=== PATIENT | male | born 1975 | race Hispanic/Latino ===

== ENCOUNTER 2020-07-08 13:06 | Emergency (ER) | payer BC ==
--- OUTSIDE RECORDS SUMMARY | 2020-07-08 13:09 | XMS REPORT | Continuity of Care Document ---
:1975 Author Organization [facility] t Address [address] [place] [address] Care Team Providers Name Role Phone Chauncey Palomares MD Attending Clinician Problems This patient has no known problems. Allergies, Adverse Reactions, Alerts This patient has no known allergies or adverse reactions. Medications This patient has no known medications. Procedures This patient has no known procedures. Encounters Start End Encounter Admission Attending Care Care Encounter Source Date/Time Date/Time Type Type Clinicians Facility Department ID 2019-01-23 2019-01-23 Emergency [facility] [id number] 03:41:44 05:34:00 Chauncey Rosario [id number] [place] [id number] [place] [id number] Results This patient has no known results.
--- NOTE | 2020-07-08 13:51 | ER ---
Nurse's Notes [facility] Name: Vinay Shabazz Jr Age: 45 yrs Sex: Male : 1975 Arrival Date: 07/08/2020 Time: 13:13 Bed 5 Private MD: Diagnosis: Paresthesia of skin Presentation: 07/08 13:16 Chief complaint: Patient states: R trunk pain for 5 days, spread to both sides of ll1 chest/trunk for 4 days. No cough or SOB. Some Nausea and fatigue. No known fever. Coronavirus screen: Client denies travel out of the [place] in the last 14 days. chills, congestion, fatigue, headache, nausea, shaking with chills, Client presents with at least one sign or symptom that may indicate coronavirus-19. Standard/surgical mask placed on the client. Ebola Screen: Patient denies travel to an Ebola-affected area in the 21 days before illness onset. Initial Sepsis Screen: Does the patient meet any 2 criteria? HR > 90 bpm. No. Patient's initial sepsis screen is negative. Does the patient have a suspected source of infection? No. Patient's initial sepsis screen is negative. Risk Assessment: Do you want to hurt yourself or someone else? Patient reports no desire to harm self or others. Onset of symptoms was July 03, 2020. 13:16 Method Of Arrival: Ambulatory [facility] 13:16 Acuity: TRI 3 ll1 Historical: - Allergies: 13:20 No Known Allergies; ll1 - PMHx: 13:20 Hypertension; Diabetes - IDDM; ll1 - PSHx: 13:20 endoscopy; ll1 - Immunization history:: Flu vaccine is not up to date. - Social history:: Smoking status: Patient denies any tobacco usage or history of. Screenin:57 Abuse screen: Denies threats or abuse. Nutritional screening: No deficits noted. jd3 Tuberculosis screening: No symptoms or risk factors identified. Fall Risk Ambulatory Aid- None/Bed Rest/Nurse Assist (0 pts). Gait- Normal/Bed Rest/Wheelchair (0 pts) Mental Status- Oriented to own ability (0 pts). Total Chen Fall Scale indicates No Risk (0-24 pts). Assessment: 13:55 General: Appears in no apparent distress. comfortable, Behavior is calm, cooperative, jd3 appropriate for age. Pain: Denies pain. Neuro: Level of Consciousness is awake, alert, obeys commands, Oriented to person, place, time, situation. Cardiovascular: Capillary refill < 3 seconds Patient's skin is warm and dry. Respiratory: Airway is patent Respiratory effort is even, unlabored, Respiratory pattern is regular, symmetrical. GI: No signs and/or symptoms were reported involving the gastrointestinal system. : No signs and/or symptoms were reported regarding the genitourinary system. EENT: No signs and/or symptoms were reported regarding the EENT system. Derm: Skin is intact, Skin is dry, Skin is normal, Skin temperature is warm Reports rash to legs and abdomen. Musculoskeletal: Circulation, motion, and sensation intact. Range of motion: intact in all extremities. Vital Signs: 13:16 BP 138 / 93; Pulse 100; Resp 17; Temp 98.2; Pulse Ox 97% ; Weight 86.18 kg; Height 5 ll1 ft. 9 in. (175.26 cm); Pain 2/10; 13:16 Body Mass Index 28.06 (86.18 kg, 175.26 cm) ll1 ED Course: 13:13 Patient arrived in ED. mr 13:19 Triage completed. ll1 13:20 Arm band placed on Patient placed in an exam room, on a stretcher. ll1 13:25 Mitchell Reza RN is Primary Nurse. jd3 13:42 Irvin Ramirez PA is PHCP. [facility] 13:42 Edward Torres MD is Attending Physician. [facility] 13:57 Patient has correct armband on for positive identification. Bed in low position. Call jd3 light in reach. Side rails up X 1. Pulse ox on. NIBP on. 13:57 No provider procedures requiring assistance completed. Patient did not have IV access jd3 during this emergency room visit. Administered Medications: No medications were administered Outcome: 13:50 Discharge ordered by . [facility] 13:57 Medical screen evaluation completed per provider. Patient declined treatment. j 13:57 Condition: stable 13:57 Discharge instructions given to patient, Instructed on follow up and referral plans. Demonstrated understanding of follow-up care. 13:58 Patient left the ED. eb Signatures: Irvin Ramirez PA PA Denisa Lloyd mr Mitchell Reza RN RN jd3 Jaimie Escoto Lynsay, RN RN ll1
--- NOTE | 2020-07-08 13:51 | EDPHYS ---
Physician Documentation [facility] Name: Vinay Shabazz Jr Age: 45 yrs Sex: Male : 1975 Arrival Date: 07/08/2020 Time: 13:13 Bed 5 Private MD: ED Physician Edward Torres HPI: 07/08 13:49 This 45 yrs old Male presents to ER via Ambulatory with complaints of Skin jmm Problem. 13:49 The patient's rash thought to be caused by an unknown cause. Onset: The jmm symptoms/episode began/occurred gradually, 1 day(s) ago. Associated signs and symptoms: Pertinent positives: burning sensation, itching, Pain Pertinent negatives: swelling of lips, swelling of throat, swelling of tongue. This is a 45 year old male with a history of htn, DM, that presents to the ED with complaints of a tingling sensation with itching along with chills that radiates from the right side of his ribs to the left. Patient denies chest pain, shortness of breath, fever. Patient is concerned he may have shingles. . Historical: - Allergies: 13:20 No Known Allergies; ll1 - PMHx: 13:20 Hypertension; Diabetes - IDDM; ll1 - PSHx: 13:20 endoscopy; ll1 - Immunization history:: Flu vaccine is not up to date. - Social history:: Smoking status: Patient denies any tobacco usage or history of. ROS: 13:49 Constitutional: Negative for fever, chills, and weight loss, Cardiovascular: Negative jmm for chest pain, palpitations, and edema, Respiratory: Negative for shortness of breath, cough, wheezing, and pleuritic chest pain. 13:49 Allergy/Immunology: Positive for pruritus. 13:49 All other systems are negative. Exam: 13:49 Constitutional: This is a well developed, well nourished patient who is awake, alert, jmm and in no acute distress. Head/Face: atraumatic. Eyes: EOMI, no conjunctival erythema appreciated ENT: Moist Mucus Membranes Neck: Trachea midline, Supple 13:49 Respiratory: Normal respirations, no respiratory distress appreciated Abdomen/GI: Non distended, soft Back: Normal ROM 13:49 Chest/axilla: Inspection: normal, Palpation: is normal, tenderness. 13:49 Cardiovascular: Rate: normal. 13:49 Skin: Appearance: Color: normal in color, cellulitis, is not appreciated, induration, is not appreciated, lesion(s), are not present, no rash present. 13:49 Neuro: Orientation: is normal, Mentation: is normal, Memory: is normal. 13:49 Psych: Behavior/mood is pleasant, cooperative. Vital Signs: 13:16 BP 138 / 93; Pulse 100; Resp 17; Temp 98.2; Pulse Ox 97% ; Weight 86.18 kg; Height 5 ll1 ft. 9 in. (175.26 cm); Pain 2/10; 13:16 Body Mass Index 28.06 (86.18 kg, 175.26 cm) ll1 MDM: 13:49 Patient medically screened. [facility] 14:47 Data reviewed: vital signs, nurses notes. Counseling: I had a detailed discussion with vicenta the patient and/or guardian regarding: the historical points, exam findings, and any diagnostic results supporting the discharge/admit diagnosis, the need for outpatient follow up, to return to the emergency department if symptoms worsen or persist or if there are any questions or concerns that arise at home. Refusal of service: The patient/guardian displays adequate decision making capability and despite a detailed discussion of alternatives, benefits, risks, and consequences refuses: all X-rays, ekg. Administered Medications: No medications were administered Disposition: 07/08/20 13:50 Discharged to Home as Medical Screen. Impression: Paresthesia of skin. - Condition is Stable. - Medication Reconciliation Form, Thank You Letter, Antibiotic Education, Prescription Opioid Use form. - Follow up: Private Physician; When: 2 - 3 days; Reason: Recheck today's complaints, Continuance of care, Re-evaluation by your physician. Addendum: 07/11/2020 06:01 Co-signature as Attending Physician, Edward Torres MD I agree with the assessment and k dr plan of care. Signatures: Edward Torres MD MD kdr Mickail, Joel, PA PA jmm Botello, Elizabeth eb Lewis, Lynsay, RN RN ll1 Corrections: (The following items were deleted from the chart) 07/08 13:58 13:50 07/08/2020 13:50 Discharged to Home as Medical Screen. Impression: Paresthesia of eb skin. Condition is Stable. Forms are Medication Reconciliation Form, Thank You Letter, Antibiotic Education, Prescription Opioid Use. Follow up: Private Physician; When: 2 - 3 days; Reason: Recheck today's complaints, Continuance of care, Re-evaluation by your physician. vicenta
[2020-07-08 14:54] VITALS: BP 138/93; TEMP 98.2; O2SAT 97
== END 2020-07-08 13:58 | disposition home or self-care (01) ==
LOC: ER 13:06
DX: R20.2 Paresthesia of skin (principal); I10 Essential (primary) hypertension
CPT/HCPCS: 99283

== ENCOUNTER 2020-10-14 09:13 | Day surgery (SDC) | payer BC ==
--- NOTE | 2020-10-12 11:56 | EKG ---
Test Date: 2020-10-11 Test Time: 15:30:06 [employer] Supervisor: VIVEK MEASUREMENT RESULTS: Intervals: Rate: 70 IA: 148 QRSD: 86 QT: 370 QTc: 399 [place]: P: 30 IA: 148 QRS: 20 T: 16 INTERPRETIVE STATEMENTS: Normal sinus rhythm Nonspecific T wave abnormality Abnormal ECG Compared to ECG 08/29/2016 06:43:43 T-wave abnormality now present Electronically Signed On 10-12-20 11:53:53 CDT by Oumar Solano
[2020-10-14] MEDS: NA CHLORIDE 0.9% 1,000 ML ONE ×2 (09:40→10:38)
[2020-10-14] MEDS ORDERED: Mastisol Adhesive Liq ONE (09:59)
[2020-10-14] MEDS ORDERED: LIDOCAINE 1% W/EPI 1:100,000 10 ML VIAL ONE (09:59)
[2020-10-14] MEDS ORDERED: LIDOCAINE 2% MPF 5 ML VIAL ONE (10:52)
[2020-10-14] MEDS ORDERED: propofoL 200 MG/20 ML VIAL IV ONE (10:52)
[2020-10-14] MEDS ORDERED: GLYCOPYRROLATE 0.2 MG/ML SYR ONE ×2 (10:52)
[2020-10-14] MEDS ORDERED: MIDAZOLAM HCL 2 MG/2 ML INJ ONE (10:52)
[2020-10-14] MEDS ORDERED: FENTANYL CITR 250 MCG/5 ML ONE (10:53)
[2020-10-14] MEDS ORDERED: ROCURONIUM 50 MG/5 ML VIAL IV ONE (10:59)
[2020-10-14] MEDS ORDERED: ONDANSETRON 4 MG/2 ML VIAL ONE (11:01)
[2020-10-14] MEDS ORDERED: dexAMETHasone 10 MG/ML VIAL ONE (11:01)
[2020-10-14] MEDS ORDERED: EPHEDRINE SULF 50 MG/ML VIAL ONE (11:26)
[2020-10-14] MEDS ORDERED: NA CHLORIDE 0.9% 1,000 ML ONE (12:17)
[2020-10-14] MEDS ORDERED: TRAMADOL HCL 50 MG TAB ONE (13:58)
[2020-10-14 14:21] VITALS: BP 133/83; TEMP 96.5
[2020-10-14 14:23] VITALS: O2SAT 97
--- NOTE | 2020-10-14 16:14 | P.BOP ---
Preoperative diagnosis: thyroid cyst, parathyroid adenoma Postoperative diagnosis: parathyroid adenoma within a 6cm cystic structure Primary procedure: right inferior parathyroidectomy First Crusher: India Westfall Estimated blood loss: 20ml Specimen: neck cyst fluid. right parathyroid with cyst Findings: not connected to thyroid Anesthesia: General Complications: None Implants: none Transferred to: Recovery Room Condition: Good
--- NOTE | 2020-10-14 22:55 | OP ---
Date of Procedure: 10/14/2020 Surgeon: Lu Adams MD Bail Bonding Agent: 1. Jackie East. 2. India Salgado. Preoperative Diagnoses: Thyroid cyst and parathyroid adenoma with hypercalcemia. Postoperative Diagnosis: Cystic neck mass encompassing parathyroid adenoma of approximately 1.5 to 2 cm. Procedure: Right inferior parathyroidectomy. Implant/drain: None. Anesthesia: General. Procedure In Detail: The patient was brought to the operating room. He was placed under general ane sthesia via oral endotracheal tube. A shoulder roll was placed. The neck was extended. The planned incision site was injected with 1% lidocaine with epinephrine. The neck was prepped and draped in a standard fashion for thyroid surgery. A low collar incision was made through an existing skin creas e through the skin and subcutaneous tissue. The platysma muscle was identified, divided, and subplat ysmal flaps were developed using Bovie electrocautery. The right neck demonstrated an approximately 6 cm cystic neck mass beneath the strap muscles. The strap muscles were identified in the midline an d elevated off the mass. The cyst wall was identified and blunt dissection was carried out using the Mitchell dissector and LigaSure. The tissues were dissected. It became clinically apparent that the mass was not connected to or in anyway histologically associated with the thyroid gland itself. The right thyroid was small, approximately 3 x 2.5 cm. The right thyroid therefore was left in situ. Di ssection continued circumferentially around the mass until it appeared attached only on the deep aspe ct. Further dissection was limited due to space restrictions and size of the mass. The decision was made to rupture the cyst and drain the fluid to assist in further dissection. An 18-gauge needle on a 10 cc syringe was inserted into the cystic cavity and 10 cc of clear myriam yellow fluid were aspir ated and sent to pathology for further evaluation by permanent section. The remainder of the cyst fl uid was allowed to drain into the surgical cavity and was carefully suctioned. This deflation of the cyst greatly aided the further dissection of the cyst wall around its deep aspect due to improved ro tation and elevation. Along the inferior aspect, there was palpable firm mass of approximately 2 cm, which seemed to be encased within the cyst cavity. After careful further dissection of the cyst wit h its internal firm mass was completely removed from the surgical bed, the surgical bed was carefully inspected. There was no evidence of active bleeding. The surgical bed was thoroughly irrigated wit h multiple aliquots of sterile saline. No drain was felt to be necessary. The strap muscles were ap proximated with a single 4-0 Vicryl suture in the midline. The deep skin and platysma layers were cl osed in interrupted fashion using 4-0 Vicryl. The skin was closed in a running subcuticular fashion using 4-0 Monocryl. The skin was cleaned and dried and Dermabond was applied to the external portion of the incision. The patient was then returned to care of Anesthesia for awakening, extubation in t operating room. Disposition: The patient will be discharged home later today in the care of his family and follow up with Dr. Adams in 10 days for further evaluation and management, discussion of pathology. DONYA/ERIK Voice ID: [id number] Report ID: [id number]
== END 2020-10-14 14:13 | disposition home health service (06) ==
LOC: OR 09:13
PROVIDERS: ATTEND Otolaryngology
PROC: 0G9H3ZX Drainage of Right Thyroid Gland Lobe, Percutaneous Approach, Diagnostic (ICD-10-PCS; 2020-10-14)
PROC: 0GTN0ZZ Resection of Right Inferior Parathyroid Gland, Open Approach (ICD-10-PCS; principal; 2020-10-14 10:45)
DX: E21.0 Primary hyperparathyroidism (principal); E04.1 Nontoxic single thyroid nodule; Z20.822 Contact with and (suspected) exposure to COVID-19
CPT/HCPCS: 93005; 88108; 82947 ×2; 88305 ×2; 60500; 60300; U0003; J2704; J2250; J3010; J7030 ×2; J2405; J1100

== ENCOUNTER → 2023-07-17 | Emergency (ER) | payer BC ==
[~2023-07-17] MED LIST: NA CHLORIDE 0.9% 1,000 ML ONE
--- OUTSIDE RECORDS SUMMARY | 2023-07-17 06:00 | XMS REPORT | Continuity of Care Document ---
Author Name Unknown Address [address] [place] [address] [facility] thconnect Address [address] [place] [address] Care Team Providers Care Warp Hanger Name Role Phone Chauncey Palomares MD Attending Clinician Payers Payer Name Policy Type Policy Number Effective Date Expirati on Date Source [facility] STATE [id number] 2018 00:00:00 Allergies, Adverse Reactions, Alerts Allergy Name Allergy Type Status Severity Reaction(s) Onset Date Inactive Date Treating Clinician Comments Source NO KNOWN ALLERGIE S Drug Class Active [facility] Encounters Start Date/Time End Date/Time Encounter Type Admission Type Attending Clinicians Care Facility Care Department Encounter ID Source 2020-02-11 12:38:00 2020-02-11 12:38:00 Emergency X [facility] ERT [id number] [facility] 2019-01-23 03:41:44 2019-01-23 05:34:00 Emergency Chauncey [facility]oma[facility] [id number]
[2023-07-17 06:42] LABS: Absolute Eosinophils 0.2 K/uL (0-0.5); Absolute Lymphocytes (CBC) 2.5 K/uL (0.7-4.9); Basophils % 0.4 % (0-1.3); Eosinophils % 2.6 % (0-4.4); Hematocrit 45.2 % (39.6-49.0); Hemoglobin 15.6 g/dL (13.6-17.9); MCV 84.9 fL (80-100); MPV 7.7 fL (7.6-11.3); Platelets 302 thou/uL (152-406); RBC Red Blood Cell Count 5.32 M/uL (4.33-5.43)
[2023-07-17 07:01] LABS: Protime INR 0.97
[2023-07-17 07:08] LABS: Albumin 4.2 g/dL (3.4-5.0); Albumin/Globulin Ratio 1.4 (1.1-1.8); Bilirubin Direct 0.1 mg/dL (0-0.2); Bilirubin Indirect, Calculated 0.3 mg/dL (0.2-0.8); Bilirubin Total 0.4 mg/dL (0.2-1.0); Globulin 3.1 g/dL (2.3-3.5); Protein, Total 7.3 g/dL (6.4-8.2); Troponin High Sensitivity 4.4 pg/mL (<58.9)
--- NOTE | 2023-07-17 08:06 | RAD REPORT ---
EXAM DESCRIPTION: CT - Angio Aorta For Dissection - 07/17/2023 7:17 am CLINICAL HISTORY: chest pain COMPARISON: No comparisons TECHNIQUE: Thin axial CT images of the chest, abdomen, and pelvis were obtained during administratio n of 100mL Isovue 370 IV contrast. Sagittal and coronal reconstructions as well as maximal intensity projection reconstruction were generated and reviewed per an aortic angiography protocol. All CT scans are performed using dose optimization technique as appropriate and may include automated exposure control or mA/KV adjustment according to patient size. FINDINGS: Aorta is normal in diameter with no dissection or other acute aortic findings. Mild athero sclerotic calcifications. Reconstruction images show no significant findings. Pulmonary arteries are normal as well. No mass or infiltrate in the lung parenchyma. No pleural thickening, pleural effusion or pneumothorax . No abnormal mediastinal or hilar mass or lymphadenopathy seen. No chest wall mass or abnormal axillar y lymphadenopathy. Celiac, SMA and renal arteries show no suspicious findings. Solid abdominal viscera and bowel show no significant findings. No mass or abnormal lymphadenopathy. IMPRESSION: No acute abnormalities on CT angiogram of the aorta. No other suspicious findings on chest, abdomen, and pelvis examination.
--- NOTE | 2023-07-17 10:20 | EDPHYS ---
Physician Documentation [facility] Name: Vinay Shabazz Jr Age: 48 yrs Sex: Male : 1975 Arrival Date: 07/17/2023 Time: 05:57 Bed 8 Private MD: Tyron Mora V ED Physician Nicholas Engle HPI: 07/16 06:14 This 48 yrs old Male presents to ER via Ambulatory with complaints of Chest sp4 Pain. 07:09 48-year-old male presents for acute worsening pain midsternal described as sharp and sp4 pointed nonexertional. Patient states he has history of diabetes and hypertension. He is on metformin and is an appropriate Lisinopril. Also on Xultophy 100/3.6 insulin degludec liraglutide. . Historical: - Allergies: 06:13 No Known Allergies; jb4 - PMHx: 06:13 Diabetes - IDDM; Hypertension; jb4 - PSHx: 06:13 Parathyroid cyst removal (Hypertension); jb4 - Immunization history:: Adult Immunizations not up to date. - Social history:: Smoking status: Patient reports the use of cigarette tobacco products, denies chronic smoking, but will smoke occasionally, Patient uses alcohol, occasionally. - Family history:: not pertinent. ROS: 07:09 Constitutional: Negative for fever, chills, and weight loss, positive nonexertional sp4 midsternal chest pain 07:09 All other systems are negative, Exam: 07:09 Constitutional: This is a well developed, well nourished patient who is awake, alert, sp4 and in no acute distress. Head/Face: Normocephalic, atraumatic. Eyes: Pupils equal round and reactive to light, extra-ocular motions intact. Lids and lashes normal. Conjunctiva and sclera are not injected. Cornea within normal limits. Periorbital areas with no swelling, redness, or edema. ENT: Nares patent. No nasal discharge, no septal abnormalities noted. Tympanic membranes are normal and external auditory canals are clear. Oropharynx with no redness, swelling, or masses, exudates, or evidence of obstruction, uvula midline. Mucous membranes moist. Neck: Trachea midline, no thyromegaly or masses palpated, and no cervical lymphadenopathy. Supple, full range of motion without nuchal rigidity, or vertebral point tenderness. Chest/axilla: Normal chest wall appearance and motion. Nontender with no deformity. No lesions are appreciated. Cardiovascular: Regular rate and rhythm with a normal S1 and S2. No gallops, murmurs, or rubs. Normal PMI, no JVD. No pulse deficits. Respiratory: Lungs have equal breath sounds bilaterally, clear to auscultation and percussion. No rales, rhonchi or wheezes noted. No increased work of breathing, no retractions or nasal flaring. Abdomen/GI: Soft, with normal bowel sounds. No distension or tympany. No guarding or rebound. No evidence of tenderness throughout. Back: No spinal tenderness. No costovertebral tenderness. Skin: Warm, dry with normal turgor. Normal color with no rashes, no lesions, and no evidence of cellulitis. MS/ Extremity: Pulses equal, no cyanosis. Neurovascular intact. Full, normal range of motion. Neuro: Awake and alert, GCS 15, oriented to person, place, time, and situation. Cranial nerves II-XII grossly intact. Motor strength 5/5 in all extremities. Sensory grossly intact. Psych: Awake, alert, with orientation to person, place and time. Behavior, mood, and affect are within normal limits 07:09 ECG was reviewed by the Attending Physician. EKG at 06:11 normal sinus rhythm at a sp4 rate of 69, normal EKG Vital Signs: 06:11 BP 137 / 93; Pulse 71; Resp 16; Temp 97.9(O); Pulse Ox 100% on R/A; Weight 90.72 kg jb4 (R); Height 5 ft. 9 in. ; Pain 4/10; 07:32 BP 119 / 82; Pulse 68; Resp 16 S; Pulse Ox 99% on R/A; kc6 09:52 BP 123 / 84; Pulse 62; Resp 15; Pulse Ox 98% ; ko1 10:28 BP 116 / 78; Pulse 72; Resp 15; Pulse Ox 100% on R/A; ko1 06:11 Body Mass Index 29.53 (90.72 kg, 175.26 cm) jb4 06:11 Pain Scale: Adult jb4 [place] Coma Score: 07:09 Eye Response: spontaneous(4). Motor Response: obeys commands(6). Verbal Response: sp4 oriented(5). Total: 15. MDM: 06:15 Patient medically screened. sp4 07:07 Transition of care: Care assumed from Niko Pacheco MD. ms3 07:12 HEART Score: History: Moderately Suspicious (1), ECG: Normal (0), Age: > 45 and < 65 sp4 years (1), Risk Factors: > or = 3 Risk factors for atherosclerotic disease (2), Troponin: < or = 1 x Normal Limit (0), Total Score = 4. Data reviewed: vital signs, nurses notes, lab test result(s), EKG, radiologic studies, CT scan. Transition of care: After a detail discussion of the patient's case, care is transferred to Nicholas Engle DO. 03 06:14 Order name: Basic Metabolic Panel; Complete Time: 07:11 sp4 07/16 06:14 Order name: CBC with Diff; Complete Time: 07:05 sp4 07/16 06:14 Order name: LFT's; Complete Time: 07:11 sp4 07/16 06:14 Order name: Magnesium; Complete Time: 07:11 sp4 07/16 06:14 Order name: NT PRO-BNP; Complete Time: 07:11 sp4 07/16 06:14 Order name: PT-INR; Complete Time: 07:05 sp4 07/16 06:14 Order name: Troponin HS; Complete Time: 07:11 sp4 07/16 07:48 Order name: Troponin High Sensitivity; Complete Time: 09:53 ms3 07/16 06:14 Order name: XRAY Chest (1 view) sp4 07/16 06:31 Order name: CT Aorta for Dissection; Complete Time: 09:11 sp4 07/16 06:14 Order name: EKG; Complete Time: 06:15 sp4 07/16 06:14 Order name: Cardiac monitoring; Complete Time: 06:24 sp4 07/16 06:14 Order name: EKG - Nurse/Tech; Complete Time: 06:24 sp4 07/16 06:14 Order name: IV Saline Lock; Complete Time: 06:31 sp4 07/16 06:14 Order name: Labs collected and sent; Complete Time: 06:31 sp4 07/16 06:14 Order name: O2 Per Protocol; Complete Time: 06:24 sp4 07/16 06:14 Order name: O2 Sat Monitoring; Complete Time: 06:24 sp4 07/16 08:50 Order name: Labs - recollect needed: recollect tropin; Complete Time: 09:16 bd EC:09 Rate is 69 beats/min. Rhythm is regular, Normal Sinus Rhythm. QRS [place] is Normal. [place] sp4 interval is normal. QRS interval is normal. QT interval is normal. No Q waves. T waves are Normal. No ST changes noted. Clinical impression: Normal ECG. Interpreted by me. Reviewed by me. Administered Medications: 06:40 Drug: NS 0.9% IV 1000 ml IV at 1 bolus Per protocol; 1000 mL bolus Route: IV; Rate: 1 jw7 bolus; Site: right antecubital; Disposition Summary: 07/17/23 10:19 Discharge Ordered Notes: Location: Home ms3 Condition: Stable ms3 Diagnosis - Chest pain, unspecified ms3 Followup: ms3 - With: Tyron Mora MD - When: 2 - 3 days - Reason: Recheck today's complaints Discharge Instructions: - Discharge Summary Sheet ms3 - Nonspecific Chest Pain, Adult ms3 Forms: - Medication Reconciliation Form ms3 - Thank You Letter ms3 - Antibiotic Education ms3 - Prescription Opioid Use ms3 - Patient Portal Instructions ms3 - Leadership Thank You Letter ms3 Signatures: Dispatcher [employer] EDMS Idania Koch James, RN RN jb4 Nicholas Engle DO DO ms3 Maryanne Ayala RN RN jw7 Niko Pacheco MD MD sp4
--- NOTE | 2023-07-17 10:20 | ER ---
Nurse's Notes [facility] [place] Name: Vinay Shabazz Jr Age: 48 yrs Sex: Male : 1975 Arrival Date: 07/17/2023 Time: 05:57 Bed 8 Private MD: Tyron Mora V Diagnosis: Chest pain, unspecified Presentation: 07/16 06:11 Chief complaint: Patient states: I have been having chest pain for about a month, today jb4 was the worst. It is a non-radiating sharp pain on the left of my chest. Coronavirus screen: At this time, the client does not indicate any symptoms associated with coronavirus-19. Ebola Screen: No symptoms or risks identified at this time. Initial Sepsis Screen: Does the patient meet any 2 criteria? No. Patient's initial sepsis screen is negative. Does the patient have a suspected source of infection? No. Patient's initial sepsis screen is negative. Risk Assessment: Do you want to hurt yourself or someone else? Patient reports no desire to harm self or others. Onset of symptoms was July 17, 2023. Transition of care: patient was not received from another setting of care. 06:11 Method Of Arrival: Ambulatory jb4 06:11 Acuity: TRI 3 jb4 Historical: - Allergies: 06:13 No Known Allergies; jb4 - PMHx: 06:13 Diabetes - IDDM; Hypertension; jb4 - PSHx: 06:13 Parathyroid cyst removal (Hypertension); jb4 - Immunization history:: Adult Immunizations not up to date. - Social history:: Smoking status: Patient reports the use of cigarette tobacco products, denies chronic smoking, but will smoke occasionally, Patient uses alcohol, occasionally. - Family history:: not pertinent. Screenin:15 [facility] ED Fall Risk Assessment (Adult) History of falling in the last 3 months, jj7 including since admission No falls in past 3 months (0 pts) Confusion or Disorientation No (0 pts) Intoxicated or Sedated No (0 pts) Impaired Gait No (0 pts) Mobility Assist Device Used No (0 pt) Altered Elimination No (0 pt) Score/Fall Risk Level 0 - 2 = Low Risk Oriented to surroundings, Maintained a safe environment, Educated pt \T\ family on fall prevention, incl call for assistance when getting out of bed. Abuse screen: Denies threats or abuse. Nutritional screening: No deficits noted. Tuberculosis screening: No symptoms or risk factors identified. Assessment: 06:15 General: Appears in no apparent distress. comfortable, Behavior is calm, cooperative, jj7 appropriate for age. Pain: Complains of pain in chest Pain does not radiate. Pain currently is 4 out of 10 on a pain scale. Pain began 1 month ago. Cardiovascular: Reports chest pain, since 1 month. 07:00 Reassessment: Patient appears in no apparent distress at this time. No changes from kc6 previously documented assessment. Patient and/or family updated on plan of care and expected duration. Pain level reassessed. Patient is alert, oriented x 3, equal unlabored respirations, skin warm/dry/pink. Vital Signs: 06:11 BP 137 / 93; Pulse 71; Resp 16; Temp 97.9(O); Pulse Ox 100% on R/A; Weight 90.72 kg jb4 (R); Height 5 ft. 9 in. ; Pain 4/10; 07:32 BP 119 / 82; Pulse 68; Resp 16 S; Pulse Ox 99% on R/A; kc6 09:52 BP 123 / 84; Pulse 62; Resp 15; Pulse Ox 98% ; ko1 10:28 BP 116 / 78; Pulse 72; Resp 15; Pulse Ox 100% on R/A; ko1 06:11 Body Mass Index 29.53 (90.72 kg, 175.26 cm) jb4 06:11 Pain Scale: Adult jb4 Mk Coma Score: 07:09 Eye Response: spontaneous(4). Motor Response: obeys commands(6). Verbal Response: sp4 oriented(5). Total: 15. ED Course: 06:01 Patient arrived in ED. gm2 06:01 Tyron Mora MD is Private Physician. gm2 06:13 Triage completed. jb4 06:13 Arm band placed on right wrist. jb4 06:14 Niko Pacheco MD is Attending Physician. sp4 06:15 Patient has correct armband on for positive identification. Placed in gown. Bed in low jj7 position. Call light in reach. Side rails up X 1. Client placed on continuous cardiac and pulse oximetry monitoring. NIBP monitoring applied. athletic monitor on. Pulse ox on. 06:29 XRAY Chest (1 view) In Process Unspecified. EDMS 06:31 Basic Metabolic Panel Sent. rv1 06:31 CBC with Diff Sent. rv1 06:31 LFT's Sent. rv1 06:31 Magnesium Sent. rv1 06:31 NT PRO-BNP Sent. rv1 06:31 PT-INR Sent. rv1 06:31 Troponin HS Sent. rv1 06:31 Inserted saline lock: 20 gauge in right forearm, using aseptic technique. Blood rv1 collected. 06:43 Basic Metabolic Panel Sent. rv1 06:43 CBC with Diff Sent. rv1 06:43 LFT's Sent. rv1 06:43 Magnesium Sent. rv1 06:43 NT PRO-BNP Sent. rv1 06:43 PT-INR Sent. rv1 06:43 Troponin HS Sent. rv1 07:00 Report received from ASHLIE CAMPBELL. kc6 07:00 Oxygen administration via nasal cannula. kc6 07:07 Attending Physician role handed off by Niko Pacheco MD ms3 07:07 Nicholas Engle DO is Attending Physician. ms3 07:18 CT Aorta for Dissection In Process Unspecified. EDMS 07:41 Radha Chicas, ASHLIE is Primary Nurse. ko1 09:17 Troponin High Sensitivity Sent. ko1 09:52 Provided Education on: na. ko1 09:52 No provider procedures requiring assistance completed. ko1 10:18 Tyron Moar MD is Referral Physician. ms3 10:28 IV discontinued, intact, bleeding controlled, No redness/swelling at site. Pressure ko1 dressing applied. Administered Medications: 06:40 Drug: NS 0.9% IV 1000 ml IV at 1 bolus Per protocol; 1000 mL bolus Route: IV; Rate: 1 jw7 bolus; Site: right antecubital; Medication: 06:15 VIS not applicable for this client. jj7 Outcome: 10:19 Discharge ordered by . ms3 10:28 Discharged to home ambulatory, ko1 10:28 Condition: stable 10:28 Discharge instructions given to patient, Instructed on discharge instructions, follow up and referral plans. Demonstrated understanding of instructions, follow-up care, 10:33 Patient left the ED. ko1 Signatures: Dispatcher [employer] EDMS José Luis Rojo RN RN jb4 Nicholas Engle DO DO ms3 Maryanne Ayala RN RN jw7 Alma Dominguez RN RN kc6 Radha Chicas, RN RN ko1 Kirsten Paulino, RN RN jj7 Marcelle Friedman rv1 Niko Pacheco MD MD sp4 Mariah Perdomo gm2
--- NOTE | 2023-07-17 10:49 | RAD REPORT ---
EXAM DESCRIPTION: RAD - Chest Single View - 07/17/2023 6:28 am CLINICAL HISTORY: The patient is 48 years old and is Male; CHEST PAIN TECHNIQUE: Single view of the chest. COMPARISON: No relevant prior studies available. FINDINGS: Lungs: No pulmonary vascular congestion or consolidation. Pleural space: Unremarkable. No pneumothorax. Heart: Unremarkable. No cardiomegaly. Mediastinum: Unremarkable. Bones/joints: No acute fracture visualized. Upper abdomen: No free air in the visualized upper abdomen. IMPRESSION: No acute cardiopulmonary process identified. Electronically signed by: uL Cotter MD 07/17/2023 06:35 AM [facility] Due to temporary technical issues with the PACS/Fluency reporting system, reports are being signed by the in house radiologist without review as a courtesy to ensure prompt reporting. The interpreting r adiologist is fully responsible for the content of the report.
[2023-07-17 10:51] VITALS: BP 116/78; TEMP 97.9; O2SAT 100
--- NOTE | 2023-07-18 14:18 | EKG ---
Test Date: 2023-07-17 Test Time: 06:11:45 Clinical Administrative Coordinator: RV MEASUREMENT RESULTS: Intervals: Rate: 69 MT: 148 QRSD: 78 QT: 388 QTc: 415 Conrad: P: 54 MT: 148 QRS: 36 T: 10 INTERPRETIVE STATEMENTS: Normal sinus rhythm Normal ECG Compared to ECG 10/11/2020 15:30:06 T-wave abnormality no longer present Electronically Signed On 07-18-23 14:13:57 HOUSEKEEPER/CUSTODIAN/LAUNDRY WORKER by Leo Pires
== END ==
LOC: ER 05:57
DX: R07.9 Chest pain, unspecified (principal); I10 Essential (primary) hypertension; E11.9 Type 2 diabetes mellitus without complications; F17.210 Nicotine dependence, cigarettes, uncomplicated
CPT/HCPCS: 93005; 85025; 80048; 36415; 83735; 85610; 80076; 84484 ×2; 83880; 71275; 74175; 71045; Q9967; J7030; 99285